=== PATIENT | female | born 1985 | race Caucasian/White ===

== ENCOUNTER → 2017-01-10 | Outpatient (CLI) | payer OTHER ==
[~2017-01-10] MED LIST: GADOBUTROL 10 MMOL/10 ML (GADAVIST) VIAL IV ONE
== END ==
LOC: RAD 07:27
PROVIDERS: ATTEND Nurse Practitioner Family
DX: N63.10 Unspecified lump in the right breast, unspecified quadrant (principal); N63.20 Unspecified lump in the left breast, unspecified quadrant
CPT/HCPCS: 77059

== ENCOUNTER → 2017-07-18 | Outpatient (CLI) | payer OTHER ==
--- NOTE | 2017-07-18 09:42 | Diagnostic Imaging Report ---
CLINICAL INDICATION: Patient with elevated blood pressure and vertigo. COMPARISON: None. EXAMINATION: Real-time carotid Doppler duplex imaging is performed bilaterally. Peak systolic velocity, ICA/CCA peak systolic ratio, spectral analysis, and vascular morphology are studied. FINDINGS: ARTERY VELOCITY Right Left CCA 1.08 m/s 1.04 m/s ICA 1.08 m/s 1.24 m/s ECA 1.07 m/s 1.11 m/s ICA/CCA 1.0 1.2 VERT.ART Antegrade Antegrade Minimally elevated velocities involving the distal cervical left ICA with velocities of 1.24 m/s with no significant atherosclerotic disease seen. IMPRESSION: There is no grayscale or Doppler evidence of significant vascular stenosis. Dictated by: Dictated on workstation # [id number]
== END ==
LOC: RAD 08:48
PROVIDERS: ATTEND Nurse Practitioner Family
DX: R42 Dizziness and giddiness (principal); R03.0 Elevated blood-pressure reading, without diagnosis of hypertension
CPT/HCPCS: 93880